=== PATIENT | female | born 1965 | race Caucasian/White ===

== ENCOUNTER 2021-01-29 12:46 | Emergency (ER) | payer OTHER | END 2021-01-29 15:18 | disposition home or self-care (01) | LOC: FER 12:46 | DX: S81.811A Laceration without foreign body, right lower leg, initial encounter (principal); I10 Essential (primary) hypertension; Z23 Encounter for immunization; W25.XXXA Contact with sharp glass, initial encounter; Y92.009 Unspecified place in unspecified non-institutional (private) residence as the place of occurrence of the external cause ==